=== PATIENT | male | born 1950 | race Caucasian/White ===

== ENCOUNTER 2017-08-28 18:56 | Emergency (ER) | payer MEDICARE, OTHER ==
[2017-08-28] MEDS ORDERED: Tetan/Diph/Pertus SYR(Tdap)* 0.5 ML SYR(BOOSTRIX) use SYR IM ONE (19:03)
[2017-08-28] MEDS ORDERED: Ciprofloxacin TAB* 500 MG PO ONE (20:16)
--- NOTE | 2017-08-28 20:17 | ED ---
Laceration/Wound HPI - HPI Summary HPI Summary: 67-year-old male presents with left foot laceration today. He states that he was walking he tripped and twisted his foot into the edge of a metal fence. He was wearing sandals and the metal may have went through them. A small laceration noted to sole of his left foot. Denies any foreign body. The wound is contaminated. Tetanus is not up-to-date. He is not diabetic. He takes a daily aspirin. There is no active bleeding. No other injury. he has full range of motion of the foot. No numbness or tingling. - History of Current Complaint Stated Complaint: LT FOOT LAC Time Seen by Provider: 08/28/17 19:03 Pain Intensity: 1 - Allergy/Home Medications Allergies/Adverse Reactions: Allergies Allergy/AdvReac Type Severity Reaction Status Date / Time No Known Allergies Allergy Verified 08/28/17 19:00 PMH/Surg Hx/FS Hx/Imm Hx Endocrine/Hematology History: Denies: Hx Diabetes Cardiovascular History: Reports: Hx Angina, Hx Hypercholesterolemia Denies: Hx Coronary Artery Disease, Hx Hypertension, Hx Myocardial Infarction , Hx Valvular Heart Disease Respiratory History: Denies: Hx Asthma, Hx Chronic Obstructive Pulmonary Disease (COPD) History: Denies: Hx Dialysis, Hx Renal Disease - Surgical History Surgery Procedure, Year, and Place: Right Inguinal Hernia repair age 12. ORAL SX 2015 - Immunization History Date of Tetanus Vaccine: Unknown Infectious Disease History: No Infectious Disease History: Denies: Traveled Outside the [place] in Last 30 Days - Social History Alcohol Use: Daily Alcohol Amount: a few cocktails Substance Use Type: Reports: None Smoking Status (MU): Never Smoked Tobacco Have You Smoked in the Last Year: No Review of Systems Negative: Fever Negative: Chest Pain Negative: Shortness Of Breath Positive: Other - left foot pain All Other Systems Reviewed And Are Negative: Yes Physical Exam Triage Information Reviewed: Yes Vital Signs On Initial Exam: Initial Vitals Temp Pulse Resp BP Pulse Ox 97.6 F 70 20 138/74 97 08/28/17 18:57 08/28/17 18:57 08/28/17 18:57 08/28/17 18:57 08/28/17 18:57 Vital Signs Reviewed: Yes Appearance: Positive: Well-Appearing Skin: Positive: Warm, Dry, Other - 3cm by 1/2cm on left foot to the subq Head/Face: Positive: Normal Head/Face Inspection Eyes: Positive: Normal, Conjunctiva Inflammed Respiratory/Lung Sounds: Positive: Clear to Auscultation, Breath Sounds Present Cardiovascular: Positive: Normal, RRR Musculoskeletal: Positive: Strength/ROM Intact - left foot, Other - good pulses , capillary refill<2secs Neurological: Positive: Normal Psychiatric: Positive: Normal Procedures - Laceration/Wound Repair 1 Location: Other - left foot Description: Irregular Anesthesia: Local, 1.0%, Epi Length, Depth and Shape: 3cm by 1/2cm triangular lac to subq Irrigated w/ Saline (ccs): 500 Laceration/Wound Explored: contaminated Closure: Single Layer Debridement: minimal Suture Type: Prolene Number of Sutures: 4 Layer Closure?: No Sterile Dressing Applied?: No - telfa and coband Diagnostics - Vital Signs Vital Signs Temp Pulse Resp BP Pulse Ox 08/28/17 18:57 97.6 F 70 20 138/74 97 - Laboratory Lab Statement: Any lab studies that have been ordered have been reviewed, and results considered in the medical decision making process. Laceration Repair Course/Dx - Course Course Of Treatment: 67-year-old male presents with left foot laceration today. He states that he was walking he tripped and twisted his foot into the edge of a metal fence. He was wearing sandals and the metal may have went through them. A small laceration noted to sole of his left foot. Denies any foreign body. The wound is contaminated. Tetanus is not up-to-date. He is not diabetic. He takes a daily aspirin. There is no active bleeding. No other injury. he has full range of motion of the foot. No numbness or tingling. On exam has stationary by half centimeter to the subcutaneous fat laceration of left foot. Neurovascular intact. Full range of motion. Extensively cleaned area and debrided. Placed 4 stitches. told to try to avoid putting weight as much as possible. will have take Cipro due to going through shoe potentially. Told to watch for any signs of infection. told to ED if developed any infection. Patient understands and agrees with plan. - Differential Dx Differental Diagnoses: Abrasion, Avulsion, Laceration - Clinical Impression Provider Diagnoses: Laceration of foot Discharge - Sign-Out/Discharge Documenting (check all that apply): Discharge/Admit/Transfer - Discharge Plan Condition: Good Disposition: HOME Prescriptions: Ciprofloxacin TAB* [Cipro 500 MG TAB*] 500 mg PO BID #9 tab Patient Education Materials: Care For Your Stitches (ED) Referrals: Kendra Sykes MD [Primary Care Provider] - Additional Instructions: Take Tylenol or ibuprofen for pain Keep area clean and dry for 24 hours Take cipro twice a day for 5 days Return to ED or primary in 10-14 days to have sutures removed Return to ED if develop signs of infection such as fever, spreading redness, or pus. - Billing Disposition and Condition Condition: GOOD Disposition: Home
[2017-08-28 20:35] VITALS: BP 129/70
== END 2017-08-28 20:35 | disposition home or self-care (01) ==
LOC: ED 18:56
DX: S91.312A Laceration without foreign body, left foot, initial encounter (principal); W26.8XXA Contact with other sharp object(s), not elsewhere classified, initial encounter; Y93.01 Activity, walking, marching and hiking; Y92.9 Unspecified place or not applicable; Z23 Encounter for immunization; I20.9 Angina pectoris, unspecified; E78.00 Pure hypercholesterolemia, unspecified; Z79.82 Long term (current) use of aspirin
CPT/HCPCS: 12002; 90471; 90715; 99282; A9270-GY

== ENCOUNTER 2018-04-06 10:25 | Observation (INO) | payer OTHER ==
[2018-04-06] MEDS ORDERED: NS 0.9% 1000 ML* 1,000 ML IV ONE (10:36)
--- NOTE | 2018-04-06 10:43 | ED ---
Altered Mental Status - HPI Summary HPI Summary: This patient is a 67 year old male presenting to [facility] accompanied by with a chief complaint of AMS since 8am today. Patients states that they woke up in bed and had intercourse, when shortly afterwards, the patient forgot that they had just had intercourse. Patients notes that he also could not recall several important events, such as the fact that he is retiring in 4 days and that they have a purchase offer on a property and have big decisions to make about this real estate. denies noting any slurred speech or weakness. She states that pt kept asking the same question over and over. The pain is rated 0/10 in severity. Symptoms aggravated by nothing. Symptoms alleviated by nothing. Patient denies weakness, headache, dizziness, chest pain. Pt is very hypertensive at triage 198/118, however he saw his PCP, Dr. Sykes, 2 days ago and he was not hypertensive. - History Of Current Complaint Chief Complaint: EDAltMentalStatus Stated Complaint: AMS Time Seen by Provider: 04/06/18 10:36 Hx Obtained From: Patient, Family/Certified Wellness Program Manager - Last Known Well Date: 0800 at 04/06/2017 Onset/Duration: Resolved Timing: Constant, Lasting Minutes Severity Initially: Moderate Severity Currently: Moderate Character: Confusion Aggravating Factor(s): Nothing Alleviating Factor(s): Nothing Associated Signs And Symptoms: Positive: Negative - weakness, headache, dizziness, chest pain - Allergies/Home Medications Allergies/Adverse Reactions: Allergies Allergy/AdvReac Type Severity Reaction Status Date / Time No Known Allergies Allergy Verified 04/06/18 10:32 PMH/Surg Hx/FS Hx/Imm Hx Previously Healthy: No Endocrine/Hematology History: Denies: Hx Diabetes Cardiovascular History: Reports: Hx Angina, Hx Hypercholesterolemia Denies: Hx Coronary Artery Disease, Hx Hypertension, Hx Myocardial Infarction , Hx Valvular Heart Disease Respiratory History: Denies: Hx Asthma, Hx Chronic Obstructive Pulmonary Disease (COPD) GI History: Reports: Hx Gastroesophageal Reflux Disease History: Denies: Hx Dialysis, Hx Renal Disease - Surgical History Surgery Procedure, Year, and Place: Right Inguinal Hernia repair age 12. ORAL SX 2014 - Immunization History Date of Tetanus Vaccine: Unknown Infectious Disease History: No Infectious Disease History: Denies: Traveled Outside the [place] in Last 30 Days - Family History Known Family History: Positive: Hypertension - Social History Occupation: Employed Full-time - retires in 4 days (04/06/18) Lives: With Family Alcohol Use: Daily Alcohol Amount: a few cocktails Hx Substance Use: No Substance Use Type: Reports: None Hx Tobacco Use: No Smoking Status (MU): Never Smoked Tobacco Have You Smoked in the Last Year: No Review of Systems Negative: Fever Negative: Chest Pain Respiratory: Negative Gastrointestinal: Negative Positive: no symptoms reported Musculoskeletal: Negative Skin: Negative Neurological: Negative - Dizziness Negative: Headache, Weakness Psychological: Normal All Other Systems Reviewed And Are Negative: Yes Physical Exam - Summary Physical Exam Summary: Appearance: Well-appearing, no pain distress, well-nourished Skin: Warm, color reflects adequate perfusion, dry Head: Normal Head/Face inspection, atraumatic Eyes: Conjunctiva clear, PERRL EOMI ENT: Normal inspection Neck: Supple, no nodes, no JVD Respiratory: Lungs clear, normal breath sounds, no respiratory distress Cardio: RRR, No murmur, pulses normal, brisk capillary refill Abdomen: Soft, nontender Bowel sounds: Present Musculoskeletal: Strength Intact/ROM intact, no calf tenderness, no edema. Psychological: Normal Neuro: Alert, muscle tone normal, no focal deficit, see NIH = 0; GCS 14. Triage Information Reviewed: Yes Vital Signs On Initial Exam: Initial Vitals Temp Pulse Resp BP Pulse Ox 98.0 F 84 16 198/118 96 04/06/18 10:28 04/06/18 10:28 04/06/18 10:28 04/06/18 10:28 04/06/18 10:28 Vital Signs Reviewed: Yes - Broad Top Coma Scale Best Eye Response: 4 - Spontaneous Best Motor Response: 6 - Obeys Commands Best Verbal Response: 4 - Confused Coma Scale Total: 14 Diagnostics - Vital Signs Vital Signs Temp Pulse Resp BP Pulse Ox 04/06/18 10:28 98.0 F 84 16 198/118 96 - Laboratory Result Diagrams: 04/07/18 05:18 04/07/18 05:18 Lab Statement: Any lab studies that have been ordered have been reviewed, and results considered in the medical decision making process. - Radiology CXR Radiology Interpretation Completed By: Radiologist Summary of Radiographic Findings: CXR reveals, per radiologist, IMPRESSION: NO ACTIVE CARDIOPULMONARY DISEASE. ED physician has reviewed this radiology report. - CT CT Brain CT Interpretation Completed By: Radiologist Summary of CT Findings: Brain CT reveals, per radiologist, IMPRESSION: No intracranial mass or hemorrhage is noted. Findings called to Dr. Pierre at 10: 44 AM. ED physician has reviewed this radiology report. - EKG 1056 Cardiac Rate: NL EKG Rhythm: Sinus Rhythm - 77 ST Segment: Non-Specific Ectopy: None EKG Comparison: Other - no prior to compare Summary of EKG Findings: An EKG, taken 1056, reveals NSR (77 BPM), normal AV IV CT, normal QTc, nonspecific ST T-wave changes, no ectopy, no prior to compare. National Institutes Of Health - NIH Scale Level of Consciousness: Alert/Keenly Responsive Ask Patient the Month and His/Her Age: Both Correct Ask Pt to Open/Close Eyes and Fashion Artist/Release Non-Paretic Hand: Both Correctly Best Gaze (Only Horizontal Eye Movement): Normal Visual Field Testing: No Visual Loss Facial Paresis-Pt to Smile & Close Eyes or Grimace Symmetry: Normal/Symmetrical Motor Function - Right Arm: No Drift-Holds 10 Seconds Motor Function - Left Arm: No Drift-Holds 10 Seconds Motor Function - Right Leg: No Drift-Holds 10 Seconds Motor Function - Left Leg: No Drift-Holds 10 Seconds Limb Ataxia-Must be out of Proportion to Weakness Present: Absent Sensory (Use Pinprick to Test Arms/Legs/Trunk/Face): Normal Best Language (Describe Picture, Name Items): No Aphasia Dysarthria (Read Several Words): Normal Extinction and Inattention: No Abnormality Total Score: 0 Altered Mental Statu Course/Dx - Course Course Of Treatment: This patient is a 67 year old male presenting to [facility] accompanied by with a chief complaint of AMS since 8am today. Bloodwork Obtained. Urinalysis Obtained. In the ED course the patient was given Aspirin, NS 0.9% 1000ml IV bolus. The pt is hemodynamically stable, alert and oriented x3. We entered triage room at 1030, called [facility] at 1034. [facility] was called to contact the stroke attending at 1037. Dr. Chambers was confirmed for telestroke at 1047. Lili at the transfer center advised Dr. Chambers to initiate telestroke without waiting for images at 1059. At 1106, Dr. Chambers called and talked to the patient. Dr. Chambers states that these sx are indicative of Transient global amnesia. She recommends obtaining an MRI today, as well a US carotid and an ECHO with bubble. Patient should receive a full dose of aspirin today and admitted for further observation. We discussed patient care with Dr. Vazquez (Hospitalist) at 1134 and they agreed to admit the patient. The patient is agreeable with this plan. - Diagnoses Differential Diagnosis/HQI/PQRI: CVA, Intracranial Bleed, Medication Reaction, Metabolic Disorder, Other Provider Diagnoses: Hypertensive urgency, Transient global amnesia During the Visit The Following Alert/Code Occurred: Code Sierra - Provider Notifications Discussed Care Of Patient With: Estelita Chambers - Neurologist Time Discussed With Above Provider: 11:06 Instructed by Provider To: Admit As Observation - We discussed patient care with Dr. Vazquez (Hospitalist) at 1134 and they agreed to admit the patient. Discharge - Sign-Out/Discharge Documenting (check all that apply): Patient Departure - admit - Discharge Plan Condition: Stable Disposition: ADMITTED TO [facility] - Billing Disposition and Condition Condition: STABLE Disposition: Admitted to [facility] - Attestation Statements Document Initiated by Jayibe: Yes Documenting Scribe: Minesh Mcdowell Provider For Whom Angel is Documenting (Include Credential): Rosalva Pierre MD Scribe Attestation: Minesh Acevedo scribed for Rosalva Pierre MD on 04/09/18 at 0056. Scribe Documentation Reviewed: Yes Provider Attestation: The documentation as recorded by the Minesh muhammad accurately reflects the service I personally performed and the decisions made by , Rosalva Pierre MD Status of Scribe Document: Viewed
[2018-04-06 11:16] LABS: ABS Basophils 0 10^3/ul (0-0.2); ABS Eosinophils 0.2 10^3/ul (0-0.6); ABS Lymphocytes 1.3 10^3/ul (1.0-4.8); ABS Monocytes 0.4 10^3/ul (0-0.8); ABS Neutrophils 3.2 10^3/ul (1.5-7.7); ABS Nucleated RBC 0 10^3/ul; Eosinophil % 3.8 %; Hematocrit 44 % (42-52); Lymphocyte % 25.7 %; Mean Corpuscular HGB Conc 34 g/dl (31-36); Mean Corpuscular Hemoglobin 33 pg (27-31); Mean Corpuscular Volume 98 fL (80-94); Mean Platelet Volume 7.8 fL (7.4-10.4); Nucleated Red Blood Cells % 0; Platelet Count 207 10^3/ul (150-450); Red Cell Distribution Width 13 % (10.5-15); White Blood Count 5.1 10^3/ul (3.5-10.8)
[2018-04-06 11:25] LABS: Activated Partial Thrombo Time 27.1 seconds (26.0-36.3); Albumin 4.2 g/dL (3.2-5.2); Albumin/Globulin Ratio 1.3 (1-3); BUN/Creatinine Ratio 15.7 (8-20); Calcium 9.5 mg/dL (8.6-10.3); EGFR African American 82.3 (>60); Globulin 3.2 g/dL (2-4); INR 0.9 (0.77-1.02); Potassium 3.9 mmol/L (3.5-5.0); Total Bilirubin 0.6 mg/dL (0.2-1.0); Total Protein 7.4 g/dL (6.4-8.9)
[2018-04-06] MEDS ORDERED: Aspirin TAB* 325 MG PO ONE (11:27)
[2018-04-06 11:53] LABS: Acetaminophen < 15 mcg/mL; Alcohol < 10 mg/dL (<10); Salicylate < 2.50 mg/dL (<30)
[2018-04-06] MEDS ORDERED: Acetaminophen TAB* 325 MG PO PRN ×2 (13:12)
[2018-04-06] MEDS ORDERED: Thiamine IV* 100 MG/ML 2 ML VIAL IM ONE (13:12)
[2018-04-06 13:50] LABS: Urine Appearance Clear; Urine Bilirubin Negative (Negative); Urine Blood Negative (Negative); Urine Color Yellow; Urine Glucose Negative (Negative); Urine Ketones Negative (Negative); Urine Nitrite Negative (Negative); Urine Protein Negative (Negative); Urine Specific Gravity 1.014 (1.010-1.030); Urine Urobilinogen Negative (Negative)
[2018-04-06] MEDS ORDERED: Iohexol 350* (CONTRAST) 500 ML MDV IV ONE (13:51)
[2018-04-06] MEDS ORDERED: LORazepam TAB(*) 1 MG PO SCH (14:00)
[2018-04-06 14:05] LABS: TSH (Thyroid Stimulating Horm) 3.95 mcIU/mL (0.34-5.60)
[2018-04-06 14:17] LABS: Barbiturates Urine Screen None Detected (None Detect); Benzodiazepine Urine Screen None Detected (None Detect); Urine Cannabinoids Screen None Detected (None Detect)
--- NOTE | 2018-04-06 18:01 | HP ---
CC: Dr. Kendra Sykes; Dr. Garcia; Dr. Marquez * HISTORY AND PHYSICAL: DATE OF ADMISSION: 04/06/18 PRIMARY CARE PROVIDER: Dr. Kendra Sykes. OTHER PROVIDER: Dr. Marquez, Neurology. ATTENDING PHYSICIAN: Dr. Bo Vazquez * (dictated by Abdi Roberts NP) CHIEF COMPLAINT: Amnesia. HISTORY OF PRESENT ILLNESS: Mr. 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 The patient presented with his who drove him here today. Their chief complaint was altered mental status since 8 a.m. today. On presentation, the patient's stated they woke up and had intercourse and then shortly after the patient had forgotten they had sex. In addition, he was having trouble recalling recent important events including the fact that he is retiring in 4 days and that they were purchasing a plot of land. denies any slurred speech or weakness. Due to presentation, while the patient in the emergency room, a [facility] was called and telestroke medicine was consulted. The patient was given NIH score of 0 with a suspected diagnosis of transient global amnesia. Recommendations were made for an MRI, ultrasound of carotids, full dose aspirin, admission and echo with bubble. Therefore, the hospitalist team was asked to evaluate for admission. It should be mentioned that while in the emergency room, the patient did receive full dose aspirin. He was also initially hypertensive with a blood pressure of 198/ 118, which have normalized and is now 137/80. On evaluation by this feature writer, the patient's memory is returning. He can recall events leading up to his period of amnesia. He can also recall events from the night before. The patient's does mention that he had a brief few moments of clarity and was able to recall events for about 15 minutes this morning and then started to repeat himself again asking questions regarding his detention and the purchase of land. Further assessment of the patient reveals no neurological deficits. It should be noted the patient has slight flattening of left upper lip, which states is his baseline after getting dentures placed. In addition, it should also be noted that the patient does have right lazy eye, which is baseline for him also. Otherwise, his neuro exam is normal. He denies chest pain, shortness of breath, palpitations, dizziness, headache, weakness, numbness, tingling, nausea, vomiting, visual changes, difficulty swallowing, difficulty finding words. PAST MEDICAL HISTORY: 1. Hyperlipidemia. 2. Hypertension. 3. Acid reflux. 4. Atherosclerosis of lower extremities. PAST SURGICAL HISTORY: No significant. HOME MEDICATIONS: 1. Atorvastatin 80 mg p.o. daily. 2. Aspirin 81 mg p.o. daily. 3. Metoprolol succinate XL tab 25 mg p.o. daily. ALLERGIES: No known drug allergies. FAMILY HISTORY: Mother due to complications of breast cancer at age 55. Dad due to [facility] at age 55. SOCIAL HISTORY: The patient reports approximately 20 years of a pack a day smoking. He quite 10 years ago. The patient denies recreational drug use. The patient reports daily alcohol intake. He reports some nights he has a bottle of wine, other nights he has 3 to 4 Manhattans. Occupation: The patient will be retiring soon. The patient lives with his and is independent with his ADLs. The patient's decision maker is his in the event if he is unable to make his own decisions. REVIEW OF SYSTEMS: A 14-point review of systems was performed and all pertinent positives and negatives are in the HPI, all others are negative. PHYSICAL EXAMINATION GENERAL: Mr. Zuniga is a 67-year-old male who is well developed, well nourished, sitting in bed, in no acute distress. He appears stated age. VITAL SIGNS: Temp 98.0, HR 65, RR 13, O2 sat 96%, BP 137/80. HEENT: Visual preston are grossly intact. Pupils are equal, round and reactive to light and accommodation. Extraocular movements are intact. Sclerae without icterus. Hearing is grossly intact. External auditory canals are patent. External nose is within normal limits. Dentition is good. Oral mucosa is moist without lesions. Tonsils are without erythema or exudate. Pharynx is clear. NECK: Full range of motion. Thyroid not palpable. Trachea midline. No lymphadenopathy. RESPIRATORY: Symmetric chest expansion. No accessory muscle use. LUNGS: Clear to auscultation. No rhonchi, rubs or wheezing. CARDIOVASCULAR: Regular rate and rhythm. S1, S2 present. No murmurs, rubs or gallops. No JVD. ABDOMEN: Soft, nontender to palpation. Bowel sounds are normoactive throughout. No bruits appreciated. EXTREMITIES: Skin is warm and smooth bilaterally. No edema. No clubbing or cyanosis. Pedal pulses 2+ bilaterally. MUSCULOSKELETAL: Full range of motion. No pain or deformities. NEUROLOGIC: Awake, alert, oriented x4. Cranial nerves II thorough XII intact. Moves all extremities. Motor strength 5/5 in upper and lower extremities. No focal deficits noted. Skin: Grossly intact without lesions. DIAGNOSTIC STUDIES/LABORATORY DATA: WBC 5.1, hemoglobin 15, hematocrit 44, platelet 207. Sodium 140, potassium 3.9, chloride 107, carbon dioxide 27, BUN 17, creatine 1.08, glucose 125. Total bilirubin 0.60, AST 25, ALT 42, alk phos 66, troponin 0.00, triglyceride 180, cholesterol 185, LDL 96, HDL 53. TSH is pending. Serum alcohol is less than 10. ASSESSMENT AND PLAN: Mr. Zuniga is a 67-year-old male with a past medical history of hypertension, hyperlipidemia, arthrosclerotic disease; who presented to the ED with amnesia. He will be admitted OBV for 1. Amnesia: As mentioned above, high in the differential is transient global amnesia. In addition, but less likely transient ischemic attack is also on the differential. I spoke with Dr. Marquez, the neurologist on-call and discussed recommendations from the telemedicine stroke team. Due to accessibility of the MRI on the weekends, it was suggested that patient undergo CTA of head and neck. Therefore, I called Dr. Chambers with the telemedicine group and discussed obtaining CTA of head and neck instead of MRI. The doctor agrees with this plan. She recommends obtaining the MRI at some point even if that is as an outpatient. The patient has already received his full dose aspirin while in emergency room and will therefore receive 81 mg daily while admitted. In addition, the patient will undergo an echo with bubble. Last echo was noted to be in 2012 with no bubble. The patient will also be placed on telemetry with q.2 hour neuro checks. 2. Hypertension: The patient will have vital signs monitored routinely. In addition, we will continue the patient's metoprolol 25 mg p.o. daily. 3. Hyperlipidemia: We will continue the patient's Lipitor 80 mg p.o. daily and provide the patient with a heart healthy diet. 4. Arthrosclerotic disease: We will continue the patient's aspirin 81 mg daily as mentioned above. We will recommend follow up with his primary care provider after discharge regarding the diagnosis. 5. FEN: The patient will be provided with heart healthy diet. 6. Code status: The patient has a full code. 7. DVT prophylaxis: Based on DVT risk assessment, the patient is high risk. I will order heparin subcu q.8 hours. TIMES SPENT: Approximately 60 minutes was spent on this admission, greater than half the time was spent [id number] withe the patient and caregiver obtaining my history and performing physical exam and reviewing the plan of care. This case has been reviewed by my attending, Dr. Vazquez, who is agreeable with my plan. ABDI ROBERTS, CORY [id number]/CPS #: [id number]
[2018-04-06] MEDS: Heparin VIAL(*) 5000 UNITS/ML VIAL (FIVE THOUSAND) SUBCUT SCH ×2 (19:26→21:02)
[2018-04-07] MEDS: Heparin VIAL(*) 5000 UNITS/ML VIAL (FIVE THOUSAND) SUBCUT SCH (05:24)
[2018-04-07 06:10] LABS: ABS Basophils 0 10^3/ul (0-0.2); ABS Eosinophils 0.2 10^3/ul (0-0.6); ABS Lymphocytes 1.6 10^3/ul (1.0-4.8); ABS Monocytes 0.4 10^3/ul (0-0.8); ABS Neutrophils 2.6 10^3/ul (1.5-7.7); ABS Nucleated RBC 0 10^3/ul; Eosinophil % 4.5 %; Hematocrit 39 % (42-52); Hemoglobin 13.3 g/dl (14.0-18.0); Lymphocyte % 33.1 %; Mean Corpuscular HGB Conc 34 g/dl (31-36); Mean Corpuscular Hemoglobin 33 pg (27-31); Mean Corpuscular Volume 98 fL (80-94); Mean Platelet Volume 7.6 fL (7.4-10.4); Nucleated Red Blood Cells % 0.1; Platelet Count 168 10^3/ul (150-450); Red Cell Distribution Width 14 % (10.5-15); White Blood Count 4.8 10^3/ul (3.5-10.8)
[2018-04-07 06:28] LABS: EGFR African American 96.6 (>60); EGFR Non-African American 79.8 (>60); Potassium 4.1 mmol/L (3.5-5.0)
[2018-04-07] MEDS ORDERED: Thiamine TAB* 100 MG TAB PO SCH (09:00)
[2018-04-07] MEDS ORDERED: Aspirin EC TAB* 81 MG TAB.EC PO SCH (09:00)
[2018-04-07] MEDS ORDERED: Folic Acid TAB* 1 MG PO SCH (09:00)
[2018-04-07] MEDS ORDERED: Multivitamins/Minerals TAB PO SCH (09:00)
[2018-04-07] MEDS ORDERED: Metoprolol Succinate XL TAB* 25 MG PO SCH (09:00)
[2018-04-07] MEDS ORDERED: Atorvastatin* 80 MG TAB PO SCH (09:00)
[2018-04-07 16:09] VITALS: BP 143/85
--- NOTE | 2018-04-07 16:42 | ECHO ---
Patient: SWATHI PHELPS [facility] Rec#: [id number] : 1950 Date: 04/07/2018 Age: 67y Height: 180 cm / 70.9 in Weight: 105.2 kg / 231.9 lbs Sex: M BSA: 2.24 Room#: 440 Admit Date#: 04/06/2018 Type: Inpatient Referring: Mckenzie Gonzalez Reading: Oscar Garcia MD Chemistry Account Manager: Ember Conner RN RDCS CC: Kendra Sykes MD Transthoracic Echocardiogram Indication: TIA BP: 114/63 HR: 64 Rhythm: NSR Findings History: HTN, HLD, atherosclerosis of lower extremities, ETOH use, former smoker Technical Comments: The study quality is fair. The study is technically limited due to patient body habitus. The study is technically limited due to the patient's smoking history. Left Ventricle: The left ventricular chamber size is normal. Mild concentric left ventricular hypertrophy is observed. There is increased basal septal hypertrophy noted without evidence of an increased gradient across the left ventricular outflow tract. The upper septum is 13 mm. Global left ventricular wall motion and contractility are within normal limits. There is normal left ventricular systolic function. The estimated ejection fraction is 55-60%. Abnormal left ventricular diastolic function is observed. Abnormal left ventricular diastolic filling is observed, consistent with impaired relaxation. Left Atrium: The left atrial chamber size is normal. Right Ventricle: The right ventricle wall thickness is mildly increased. The right ventricular cavity size is normal. The right ventricular global systolic function is normal. Right Atrium: The right atrium is slightly dilated. The bubble study is negative. A patent foramen ovale is not demonstrated with color Doppler and agitated contrast. Aortic Valve: The aortic valve is trileaflet. The aortic valve leaflets are mildly thickened. There is no evidence of aortic regurgitation. There is no evidence of aortic stenosis. Mitral Valve: The mitral valve leaflets are mildly thickened. There is trace to mild mitral regurgitation. There is no evidence of mitral stenosis. Tricuspid Valve: The tricuspid valve structure is not well visualized. There is trace tricuspid regurgitation. Unable to estimate the right ventricular systolic pressure. There is no tricuspid stenosis. Pulmonic Valve: The pulmonic valve structure is not well visualized. There is a trace pulmonic regurgitation. There is no pulmonic stenosis. Pericardium: There is no significant pericardial effusion. A pericardial fat pad is visualized. Aorta: There is no dilatation of the ascending aorta. There is no dilatation of the aortic arch. There is no dilation of the aortic root. Pulmonary Artery: The main pulmonary artery is not well visualized. Venous: The venous system is not well visualized. The inferior vena cava is not visualized. Contrast: Normal saline was used as contrast for the bubble study. Images 1 and 2. Summary: There was not any prior study for comparison. Conclusions A patent foramen ovale is not demonstrated with color Doppler and agitated contrast. There is trace to mild mitral regurgitation. There is trace tricuspid regurgitation. Mild concentric left ventricular hypertrophy is observed. There is increased basal septal hypertrophy noted without evidence of an increased gradient across the left ventricular outflow tract. There is normal left ventricular systolic function. The estimated ejection fraction is 55-60%. Abnormal left ventricular diastolic filling is observed, consistent with impaired relaxation. Measurements Name Value Normal Range RVDdMajor (2D) 3.4 cm (2.2 - 4.4) RVAW (2D) 0.9 cm (0.2 - 0.5) RAd ISD 4CH 5 cm (3.4 - 4.9) RA (A4C)W 3.8 cm (2.9 - 4.6) IVSd (2D) 1.2 cm (0.6 - 1) LVPWd (2D) 1.2 cm (0.6 - 1) LVIDd (2D) 4.4 cm (3.6 - 5.4) LVIDs (2D) 3.2 cm - LV FS (2D) 27 % (25 - 45) Aortic Annulus 2.3 cm (1.4 - 2.6) Ao root diameter (2D) 3.4 cm (2.1 - 3.5) Ascending Ao 3.4 cm (2.1 - 3.4) Aortic arch 3 cm (1.8 - 3.4) LA dimension (AP) 2D 3.7 cm (2.3 - 3.8) LAd ISD 4CH 4.8 cm (2.9 - 5.3) LA ISD 4CH W 4.2 cm (2.5 - 4.5) Name Value Normal Range LA ESV BP (A/L) index 21 ml/m2 - Name Value Normal Range MV E-wave Vmax 0.89 m/sec - MV deceleration time 257 msec - MV A-wave Vmax 0.91 m/sec - MV E:A ratio 1 ratio - LV septal e' Vmax 0.09 m/sec - LV lateral e' Vmax 0.1 m/sec - LV E:e' septal ratio 9.9 ratio - LV E:e' lateral ratio 8.9 ratio - Name Value Normal Range AV Vmax 0.98 m/sec - AV VTI 20.6 cm - AV peak gradient 4 mmHg - AV mean gradient 2 mmHg - LVOT Vmax 0.92 m/sec - LVOT VTI 20 cm - LVOT peak gradient 3 mmHg - LVOT mean gradient 2 mmHg - TRISTA Vmax 0.67 m/sec - Name Value Normal Range PV Vmax 0.63 m/sec -
--- NOTE | 2018-04-07 21:58 | PN ---
NEUROLOGICAL FOLLOWUP NOTE: DATE OF VISIT: 04/06/18 PATIENT OF: Dr. Bravo, Dr. Kendra Sykes and Dr. Garcia. HISTORY: This is a neurological followup following a telestroke consultation yesterday. He is a 67-year-old man who had an episode of transient amnesia yesterday morning following sex with his . His short term memory was extremely poor but now it has come back to normal and he has only a small period of time from yesterday morning where he was unable to remember events. A telestroke consult diagnosed transient global amnesia. He has had a CT scan which I reviewed which showed no acute findings. He had his head CTA which showed atherosclerotic disease, but no significant stenosis. PAST MEDICAL HISTORY: He has a history of hyperlipidemia, hypertension, acid reflux atherosclerosis of the lower extremities. He also is such a heavy snorer , his has moved out of the bedroom. There are no significant surgeries. MEDICATIONS: 1. Atorvastatin 80 mg daily. 2. Aspirin 81 mg daily. 3. Metoprolol XL 25 mg daily. ALLERGIES: He has no drug allergies. FAMILY HISTORY: His mother from breast cancer. Dad of a heart attack at age 55. SOCIAL HISTORY: He quit smoking after a 20-pack year history. He quit 10 years ago. He does not use drugs. He has 3-4 Manhattans or a bottle of wine at night. He will be retiring in the next 4-5 days. REVIEW OF SYSTEMS: Negative in all 14 spheres. PHYSICAL EXAMINATION: On exam, temperature 97.7, pulse 65, respiratory rate 18 , blood pressure 131/65. He is alert and oriented with normal speech and comprehension. Cranial nerves II through XII were intact. Fundi were benign. Motor exam revealed normal tone, strength, coordination and sensation to light touch. Reflexes 1 and equal. Memory was 3/3 at 5 minutes. DIAGNOSTIC STUDIES/LAB DATA: Reviewed a CT/CTA as above. His labs included normal CBC today. MCV is 98. Normal INR and PTT. Normal chemistries other than blood sugar of 104. His LDL was 96 but not fasting. Normal thyroid function. UA negative. Toxicology negative. He has had an echo today. The differential of transient global amnesia would include seizures which are unlikely, we will be checking an EEG tomorrow as an outpatient and he will not drive until he gets the results of that. I also will be checking an MRI scan as an outpatient. The MRI scan would be to look for diffuse vascular disease, but there will be no specific lesion associated with the transient global amnesia itself. He is going to get a fasting lipid profile as well as B12 level since his MCV is a little bit high. He also has significant snoring and is somewhat overweight. Discussed issues of weight loss but he should also get a sleep study as an outpatient to rule out sleep apnea which can be associated with cardiovascular disease. Please have him follow up with me. I have discussed his case with Dr. Bravo. Thank you for sharing his case. [id number]/[facility] #: [id number] JACQUI
--- NOTE | 2018-04-08 01:02 | DS ---
CC: Dr. Sykes; Dr. Marquez * DISCHARGE SUMMARY: DATE OF ADMISSION: 04/06/18 DATE OF DISCHARGE: 04/07/18 PRINCIPAL DISCHARGE DIAGNOSIS: Transient global amnesia. SECONDARY DISCHARGE DIAGNOSES: 1. Hypertension. 2. Hyperlipidemia. 3. Concern for sleep apnea. 4. Peripheral vascular disease. MEDICATIONS AT THE TIME OF DISCHARGE: 1. Atorvastatin 80 mg daily. 2. Aspirin 325 mg daily. 3. Toprol XL 25 mg daily. PERTINENT STUDIES ON THIS ADMISSION: 1. Transthoracic echocardiogram showed no PFO, moderate concentric LVH, and EF of 55% to 60%. 2. CTA of the head showed minimal arthrosclerosis in the common carotid arteries bilaterally, minimal arthrosclerosis noted at the origin of the internal carotid arteries bilaterally, arthrosclerosis noted in the intracavernous portions of the internal carotid arteries bilaterally, but no evidence of branch occlusion or aneurysmal dilatation is noticed. 3. A brain CT showed no intracranial mass or hemorrhage. HOSPITAL COURSE BY PROBLEM: 1. Transient global amnesia. The differential was thought to be most concerning for ischemia, his symptoms resolved shortly after admission and Dr. Marquez was consulted. Dr. Marquez will see Mr. Zuniga tomorrow, 04/08/18, for an EEG and will also arrange an MRI through his office. Mr. Zuniga had a lipid panel during his admission, however, it was not fasting, so I have ordered this to be done as an outpatient as well as a B12 level. TTE showed no PFO and his symptoms have resolved at the time of discharge. He is instructed to return back to the emergency department should his symptoms return. His aspirin was changed from 81 mg to aspirin 325 mg daily. Initially, the telestroke service was utilized and tPA was not recommended. Cardiovascular risk factors were addressed, specifically the possibility of obstructive sleep apnea and he is recommended to have an outpatient sleep study and I encouraged him to discuss this with his primary care provider. 2. Hyperlipidemia. He was continued on Lipitor. 3. Peripheral vascular disease. He was continued on aspirin and statin. DISPOSITION: Mr. Zuniga is discharged to home at his baseline mental status. His symptoms have all resolved. He is to follow up with Dr. Marquez tomorrow where he will have an EEG and an MRI will be arranged. He is also instructed to have outpatient labs including a fasting lipid panel and a B12. [id number]/[facility] #: [id number] [facility] CENTERJemma
== END 2018-04-07 16:12 | disposition home or self-care (01) ==
LOC: ED 10:25 → MEDTELE 13:12
PROVIDERS: ADMIT Internal Medicine; ATTEND Internal Medicine
DX: G45.4 Transient global amnesia (principal); I10 Essential (primary) hypertension; E78.5 Hyperlipidemia, unspecified; I73.9 Peripheral vascular disease, unspecified; Z79.82 Long term (current) use of aspirin
CPT/HCPCS: 36415; 70450; 70496; 70498; 71045; 80048; 80053; 80061; 80307; 80320; 80329; 81003; 82140; 83605; 84443; 84484; 85025; 85610; 85730; 86850; 86900; 86901; 93005; 93306; 96360; 96361; 96372; 99284; A9270-GY; G0378; G0480; J1644; J3411; Q9967